=== PATIENT | female | born 1945 | race Caucasian/White ===

== ENCOUNTER → 2023-06-17 10:24 | Outpatient (REF) | payer OTHER, SELFPAY | LOC: HWRAD 10:24 | PROVIDERS: ATTENDING PHYSICIAN Nurse Practitioner Family; FAMILY PHYSICIAN Family Medicine | DX: R91.8 Other nonspecific abnormal finding of lung field (principal) | CPT/HCPCS: 71250 ==

== ENCOUNTER → 2023-07-30 08:07 | Outpatient (REF) | payer OTHER, SELFPAY | LOC: DHCBC/DCA 08:07 | PROVIDERS: ATTENDING PHYSICIAN Internal Medicine Cardiovascular Disease; FAMILY PHYSICIAN Family Medicine | DX: R06.09 Other forms of dyspnea (principal) | CPT/HCPCS: 78452; 93017; A9500; J2785 ==

== ENCOUNTER → 2024-02-09 14:54 | Outpatient (REF) | payer OTHER, SELFPAY | LOC: HWRAD 14:54 | PROVIDERS: ATTENDING PHYSICIAN Nurse Practitioner Family; FAMILY PHYSICIAN Family Medicine | DX: R91.8 Other nonspecific abnormal finding of lung field (principal) | CPT/HCPCS: 71250 ==

== ENCOUNTER → 2025-02-07 13:43 | Outpatient (REF) | payer OTHER, SELFPAY | LOC: HWRAD 13:43 | PROVIDERS: ATTENDING PHYSICIAN Nurse Practitioner Family; FAMILY PHYSICIAN Hospitalist | DX: J43.9 Emphysema, unspecified (principal); R91.8 Other nonspecific abnormal finding of lung field | CPT/HCPCS: 71250 ==

== ENCOUNTER 2025-04-15 18:04 | Inpatient (IN) | payer OTHER, SELFPAY ==
[2025-04-15 15:00] VITALS: BP 127/65
[2025-04-15 15:30] LABS: Hematocrit 40.8 % (37.0-47.0); Hemoglobin 14.0 g/dL (12.0-16.0); Mean Corp Hgb Conc. 34.3 g/dL (33.0-37.0); Mean Corpuscular Volume 88.7 fL (81.0-99.0); Nucleated Red Blood Cells % 0 %; Platelet Count 162 10^3/uL (130-400); Red Cell Dist. Width 13.6 % (11.5-14.5)
--- NOTE | 2025-04-15 15:41 | ED.GENMED ---
History of Present Illness
General
Chief Complaint: Breathing Problem
Source: patient
Exam Limitations: none
Time Seen by Provider: 04/15/25 15:39
Nursing documentation reviewed up to this point in time: agreed with
History of Present Illness
History of Present Illness:
Note:
CHIEF COMPLAINT(S)
Cough and difficulty breathing.
HISTORY OF PRESENT ILLNESS
The patient is a 80-year-old female who presents with a cough and difficulty breathing. She has a history of asthma and Chronic Obstructive Pulmonary Disease (COPD). The symptoms began a few days before the visit. The patient has not been on home
oxygen therapy, although her oxygen saturation levels were noted to drop as low as 84% during the current episode. Oxygen administration in the emergency room improved her saturation to 93-95%. Initially, she had a recorded temperature of 100�F. The
patient denies any recent weight gain or swelling in her legs. Her lungs were assessed to be congested and tight, warranting a concern for pneumonia, possibly in combination with asthma exacerbation and COPD. The patient received a flu shot two days
prior to this visit.
EXTERNAL RECORDS REVIEWED
The patient mentions receiving a flu shot two days prior to the visit.
SOCIAL DETERMINANTS AFFECTING HEALTH
The patient is currently not in direct contact with any known individuals diagnosed with similar respiratory conditions this week.
PHYSICAL EXAM
General: Alert, no acute distress.
Skin: Warm, dry.
Head: Normocephalic, atraumatic.
Neck: Supple, trachea midline.
Eye, Ears, Nose, Mouth, and Throat: Oral mucosa moist.
Cardiovascular: Normal peripheral perfusion, no edema.
Respiratory: Respirations are non-labored, but lungs sound congested and tight.
Gastrointestinal: Abdomen nondistended.
Back: Normal range of motion, normal alignment.
Musculoskeletal: Normal range of motion, normal strength.
Neurological: Alert and oriented to person, place, time, and situation, no focal neurological deficit observed.
Psychiatric: Cooperative, appropriate mood & affect.
PROBLEM LIST
- Acute: Cough, difficulty breathing, potential pneumonia, COPD exacerbation, asthma exacerbation.
PLAN
- Administer oxygen to maintain saturation levels around 93-95%.
- Conduct a chest X-ray to evaluate for pneumonia or fluid in the lungs.
- Initiate breathing treatment due to lung tightness.
- Administer antibiotics and Tamiflu to combat potential infections.
- Conduct tests for flu and COVID-19.
- Admit for overnight observation and further management due to low oxygen levels.
DIFFERENTIAL DIAGNOSIS
The Differential Diagnosis includes, in no particular order and is not limited to:
- Pneumonia
- COPD exacerbation
- Asthma exacerbation
- COVID-19 infection
- Congestive heart failure
- Chronic bronchitis
- Bronchial obstruction
- Pulmonary embolism
- Interstitial lung disease
- Viral respiratory infection
Disposition:
SUMMARY OF ENCOUNTER
The patient, a 80-year-old female with a history of asthma and COPD, presented to the emergency department with a cough and difficulty breathing. Upon evaluation, she was found to have hypoxia with oxygen saturation levels dropping as low as 84%.
She had an initial recorded temperature of 100�F. Oxygen administration improved her saturation to 93-95%. A working diagnosis of influenza A and COPD exacerbation was made. She received duoneb (a combination of albuterol and ipratropium),
oseltamivir (Tamiflu), and oxygen therapy, which resulted in an improvement of her hypoxia. Given the concern for ongoing respiratory compromise and potential complications, the decision was made to admit her for further management. Antibiotics were
determined not to be indicated at this time.
DISPOSITION
Admit to hospitalist for further treatment.
ASSESSMENT
COPD exacerbation likely triggered by influenza A infection, with associated hypoxia improving with treatment.
EMERGENCY TREATMENTS ADMINISTERED
Duoneb (albuterol and ipratropium)
Oseltamivir (Tamiflu)
Oxygen therapy via nasal cannula (2 liters)
PLAN
Admit the patient for further management due to COPD exacerbation and hypoxia.
MEDICATION RECONCILIATION
- Duoneb (albuterol and ipratropium) administered.
- Oseltamivir prescribed.
- Oxygen therapy via nasal cannula at 2 liters administered.
MEDICAL DECISION MAKING
- Number and Complexity of Problems Addressed: Chronic conditions affecting care [Asthma, COPD].
- Differential Diagnosis: Pneumonia, COPD exacerbation, Asthma exacerbation, COVID-19 infection, Congestive heart failure, Chronic bronchitis, Bronchial obstruction, Pulmonary embolism, Interstitial lung disease, Viral respiratory infection.
- Data:
- Category 1: Tests and documents reviewed included oxygen saturation levels and external records indicating the recent administration of a flu shot.
- Risk: The decision for hospital admission was made due to the presenting risk factors, including COPD exacerbation, underlying respiratory conditions, and response to initial treatment needing close monitoring.
DIAGNOSIS
- Influenza A (ICD-10 code: J09.X2)
- COPD exacerbation (ICD-10 code: J44.1)
- Hypoxia (ICD-10 code: R09.02)
Phy Exam
Physical Exam
Physical Exam:
.
Scores
Heart Failure Risk
Heart Failure Risk Score: Not Applicable
Sepsis
Sepsis Screening
Sepsis Assessment: Sepsis
Sepsis Screen
Sepsis Screen: Sepsis
Date: 04/15/25
Time: 23:32
Course
Orders/Labs/Results
Orders:
Orders
04/15/25 Dinner
Regular
04/15/25 15:06
CR Chest - 2 Views Urgent
Comment:
Reason For Exam: respiratory distress
04/15/25 15:13
COVID-19 Antigen Urgent
Source: Nasal Swab
Complete Blood Count/With Diff Urgent
Comprehensive Metabolic Panel Urgent
NT-proBNP Urgent
Troponin I Urgent
INF RAPID [Influenza A+B Rapid Molecular] Urgent
NATACHA Source: Nasal Swab
Specimen Description:
04/15/25 15:42
Electrocardiogram (*1) Stat
Reason for Study: Shortness of Breath
Electrocardiogram (*1) Urgent
04/15/25 15:55
Ipratropium/Albuterol Sulfate [Duoneb] 3 ml INH R NOW STA
Oseltamivir Phosphate [Tamiflu] 75 mg PO NOW STA
04/15/25 15:56
0.9% Sodium Chloride 1000 ml [Nss] 1,000 ml IV BOLUS
04/15/25 17:57
Admit/Transfer Patient As Directed
Co-Sign Provider:
Level of Care: Inpatient admission
Assign to:: Medical/Surgical
Physician / Group: ni
Diagnosis: influenza/copd exacerbation
Reason for Hospitalization: influenza/copd exacerbation
Expected length of stay greater than two midnights?: Yes
ELOS- Estimated Length of Stay in days: 2
I certify the patient meets the requirements for IP care: Yes
Code Status As Directed
Resuscitation Status: Full Code
PRN Pain Medication Management As Directed
May give lesser potent ordered pain med per pt: Yes
preference::
Protocol:: Medication orders for pain may be administered in a
manner that supports deferring to patient preference
when the pt is:
- Requesting an ordered lesser potent pain medication.
Least to most potent pain medications are defined
as: acetaminophen < NSAID < tramadol < opioids
(morphine, oxycodone, hydromorphone).
- Requesting a lesser dose of the same medication IF
ORDERED.
- Requesting a less intrusive route of administration
if both routes are prescribed by the provider (PO <
IV).
04/15/25 19:00
Acetaminophen [Tylenol] 650 mg PO Q4HPRN PRN
Dexamethasone Sod Phosphate [Decadron] 4 mg IV Q12H
04/15/25 19:33
Albuterol Nebs [Ventolin Nebules] 2.5 mg INH R Q4HPRN PRN
Simethicone [Mylicon] 80 mg PO DAILYPRN PRN gas pains
04/15/25 19:33
Activity As Directed
Activity Level: As Tolerated
Vital Signs As Directed
Frequency: Per unit guidelines
DX Deep Vein Thrombosis Video Routine
04/15/25 20:00
Albuterol Nebs [Ventolin Nebules] 2.5 mg INH R QID
Budesonide/Formoterol 160/4.5 [Symbicort 160/4.5 Mcg Inhaler] 2 puff INH R BID
Heparin 5,000 units SC Q12
Rosuvastatin Calcium [Crestor] 5 mg PO MOWEFR
Sennosides [Senokot] 8.6 mg PO DAILYPRN PRN constipation
04/16/25 06:00
Complete Blood Count/With Diff IN AM
Comprehensive Metabolic Panel IN AM
04/16/25 08:00
Amlodipine [Norvasc] 5 mg PO DAILY
Buspirone [Buspar] 5 mg PO DAILY
Cholecalciferol (Vitamin D3) [VITAMIN D3 (cholecalciferol)] 25 mcg PO DAILY
Lactobac/Bifidobac [Visbiome] 1 cap PO DAILY
Lansoprazole [Prevacid] 15 mg PO DAILY
Losartan [Cozaar] 100 mg PO DAILY
Multivitamin [Theragran] 1 tablet PO DAILY
Abnormal Lab Results
04/15/25
15:13
WBC 4.0 L 10^3/uL
(4.8-10.8)
Absolute Lymphs (auto) 0.4 L 10^3/uL
(1.2-3.4)
Neutrophils % 77.4 H %
(42.2-75.2)
Lymphocytes % 10.3 L %
(20.5-51.1)
Monocytes % 11.5 H %
(1.7-9.3)
Sodium 129 L mmol/L
(135-145)
Chloride 95 L mmol/L
(98-107)
Glucose 119 H mg/dl
(70-99)
AST 44 H U/L
(14-36)
ALT 38 H U/L
(0-35)
04/15/25 15:13
04/15/25 15:13
Vital Signs
Initial and Last Documented VS:
Initial Vital Signs
Temp Pulse Resp BP Pulse Ox
99.0 F 96 30 127/65 88
04/15/25 15:00 04/15/25 15:00 04/15/25 15:00 04/15/25 15:00 04/15/25 15:00
Last Documented Vital Signs
Temp Pulse Resp BP Pulse Ox
100.7 F H 79 16 161/74 97
04/15/25 19:47 04/15/25 20:38 04/15/25 20:38 04/15/25 19:47 04/15/25 20:38
*Pulse Oximetry
SaO2: 88
Oxygen Mode of Delivery: Room air
Patient hypoxic: yes
*Critical Care Note
Total Time (30-74mins, 75-104mins- exclusive of procedures): Not Applicable
ED Attending Note
-
Portions of this chart may have been created with voice recognition software.� Occasional wrong word or��sound alike� substitutions may have occurred due to the inherent limitations of voice recognition software.
Discharge Plan
Departure
Patient Disposition: Admit
Date of Disposition: 04/15/25
Time of Disposition: 17:07
Admit to: Telemetry
Presentation/result/management discussed w/ accepting MD/DO: Hospitalist
Patient with high blood pressure during this ER visit?: Yes
Condition: Fair
Discharge Problem:
Influenza A, Acute exacerbation of chronic obstructive pulmonary disease, Hypoxia
Interventions
Interventions:
*Risk Screen - Suicide Last Done: 04/15/25 20:40
*General Assessment Last Done: 04/15/25 16:40
*Neglect/Abuse Screening Last Done: 04/15/25 16:40
*ED- Fall Risk Assessment Last Done: 04/15/25 16:40
*ED COVID-19 Vaccine History Last Done: 04/15/25 20:40
*Nursing Disposition Last Done: 04/15/25 19:31
ED- Cardiac Assessment Last Done: 04/15/25 16:40
ED- Pulmonary Assessment Last Done: 04/15/25 16:40
Discharge Date and Time
Discharge Date/Time: 04/15/25 19:32
[2025-04-15 15:42] LABS: ALT (SGPT) 38 U/L (0-35); AST (SGOT) 44 U/L (14-36); Albumin 4.3 g/dl (3.5-5.0); Alkaline Phosphatase 67 U/L (38-126); Blood Urea Nitrogen 15 mg/dl (7-17); Calcium 9.0 mg/dl (8.4-10.2); Carbon Dioxide 30 mmol/L (22-30); Chloride 95 mmol/L (98-107); Glucose 119 mg/dl (70-99); Potassium 4.0 mmol/L (3.5-5.1); Sodium 129 mmol/L (135-145); Total Protein 6.8 g/dl (6.3-8.2); eGFR > 60.00
[2025-04-15 15:44] LABS: COVID-19 Antigen Negative (Negative)
[2025-04-15 15:53] LABS: Troponin I 0.022 ng/ml
[2025-04-15] MEDS: DUONEB 3 ML INH (16:14)
[2025-04-15] MEDS: TAMIFLU 75 MG PO (16:14)
[2025-04-15] MEDS: NSS 1000 IV (16:15)
--- NOTE | 2025-04-15 18:03 | HPS.HSE ---
Family Physician
-
Family Physician: Fani Monroe MD
Chief Complaint
-
shortness of breath
History of Present Illness
80-year-old female past medical history of descending thoracic aortic aneurysm, hypertension, osteopenia, pulmonary nodules, hyperlipidemia, COPD, nephrolithiasis,presenting with dry cough, low-grade fever, shortness of breath since yesterday.
Off-and-on headaches. No sore throat. No vomiting or diarrhea. Denies chest pain.
She saw her primary care physician today who recommended she come to the emergency room.
Patient denies alcohol. She smokes occasionally.
Medical History
Past Medical History
Past Medical History: Reports Other (descending thoracic aortic aneurysm, hypertension, osteopenia, pulmonary nodules, hyperlipidemia, COPD, nephrolithiasis)
Past Surgical History: Reports None
Social History
Tobacco: Smoker
Alcohol: None
Drug: None
Family History
Family History: Not pertinent
Allergies / Home Medications
Allergies reflects when Allergies were last updated in [facility].
Home Medications with original date entered in [facility]
Allergy/Medication List:
Allergies
Allergy/AdvReac Type Severity Reaction Status Date / Time
guaifenesin Allergy Unknown Verified 04/15/25 15:00
lorazepam (From Ativan) Allergy Unknown Verified 04/15/25 15:00
prednisone Allergy Unknown Verified 04/15/25 15:00
antihistamines Allergy Unknown Uncoded 04/15/25 15:00
nicotine patch Allergy Unknown Uncoded 04/15/25 15:00
Home Medications
Bifidobacterium longum 10 million cell capsule (Align (B.longum)) 1 cell PO DAILY Gastrointestinal Issue 04/15/25
acetaminophen 325 mg tablet (Tylenol) 650 mg PO Q6HPRN PRN mild pain 04/15/25
albuterol sulfate 90 mcg/actuation aerosol inhaler 2 puff inhalation R Q6HPRN PRN sob 04/15/25
amlodipine 5 mg tablet (Norvasc) 5 mg PO DAILY Blood Pressure 04/15/25
budesonide 160 mcg-glycopyr 9 mcg-formot 4.8 mcg/actuation HFA inhaler (Breztri Aerosphere) 2 inh inhalation R BID Lung/Breathing Issues 04/15/25
buspirone 5 mg tablet 5 mg PO DAILY Mental Health/Anxiety 04/15/25
cholecalciferol (vitamin D3) 25 mcg (1,000 unit) capsule (Vitamin D3) 25 mcg PO DAILY Supplement 04/15/25
lansoprazole 15 mg capsule,delayed release 15 mg PO DAILY Gastrointestinal Issue 04/15/25
losartan 100 mg tablet 100 mg PO DAILY Blood Pressure 04/15/25
rosuvastatin 5 mg tablet (Crestor) 5 mg PO MOWEFR High Cholesterol 04/15/25
sennosides 8.6 mg tablet (senna) 8.6 mg PO DAILYPRN PRN constipation 04/15/25
simethicone 80 mg chewable tablet 80 mg PO DAILYPRN PRN gas pains 04/15/25
therapeutic multivitamin 1 tab PO DAILY Supplement 04/15/25
Review of Systems
-
History Source: Patient
A 12 point ROS was completed and negative except as noted: Yes
Constitutional: Reports No Symptoms
EENT: Reports No Symptoms
Respiratory: Reports See HPI
Cardiac: Reports No Symptoms
Abdomen/GI: Reports No Symptoms
: Reports No Symptoms
Musculoskeletal: Reports No Symptoms
Skin: Reports No Symptoms
Neurological: Reports No Symptoms
Endocrine: Reports No Symptoms
Hematologic/Lymphatic: Reports No Symptoms
Psych: Reports No Symptoms
Physical Exam
Vital Signs
Vital Signs
Temp Pulse Resp BP Pulse Ox
99.0 F 96 30 127/65 88
04/15/25 15:00 04/15/25 15:00 04/15/25 15:00 04/15/25 15:00 04/15/25 15:42
Physical Exam
General: Well Developed, Well Nourished and No Apparent Distress
HEENT: NormoCephalic, Moist mucous membranes and Atraumatic
Respiratory: Wheezes
Cardiac: S1/S2 and Regular Rhythm; No Murmur or Rub
GI: Soft, Non Tender, Non Distended and Normal Bowel Sounds; No Organomegaly
Rectal: Deferred by Provider
Musculoskeletal: No Clubbing, No Cyanosis and No Edema
Skin: No Rash
Neuro: Nonfocal/grossly intact
Laboratory Results
-
04/15/25 15:13
04/15/25 15:13
Laboratory Results
Total Bilirubin 0.2 mg/dl (0.2-1.3) 04/15/25 15:13
AST 44 U/L (14-36) H 04/15/25 15:13
ALT 38 U/L (0-35) H 04/15/25 15:13
Alkaline Phosphatase 67 U/L (38-126) 04/15/25 15:13
Troponin I 0.022 ng/ml 04/15/25 15:13
Data Reviewed
-
Lab Data: Labs Reviewed by me
Old Records: Reviewed
Impression/Plan
-
IMPRESSION:
PLAN:
# Influenza A infection
-Leukopenia 4
-Chest x-ray does not appear to show any infiltrates, report pending
- Tamiflu started
# COPD exacerbation secondary to influenza
-Wheezing on examination bilateral
- Albuterol every 4 hours
- Dexamethasone 4 mg every 12
- Continue Breztri
Occasional smoker
Descending thoracic aortic aneurysm
Essential hypertension
- Continue amlodipine, losartan
Osteopenia
Pulmonary nodules
Hyperlipidemia
- Continue statin
Nephrolithiasis
Prediabetes
Anxiety/depression
-Continue buspirone
GERD
-Continue lansoprazole
Full code
DVT prophylaxis�heparin
Regular diet
[2025-04-15 19:47] VITALS: BP 161/74
[2025-04-15 19:48] VITALS: BMI 19.2
--- NOTE | 2025-04-15 20:00 | PTCARENOTE ---
Late entry, Received patient from ED with her daughter. Patient AAOx3, walked to bedside with min assist. Assessed. VSS. Patient oriented to the unit. Patient verbalized an understanding to ring for all transfers. Bed alarm placed for safety.
[2025-04-15] MEDS: DECADRON 4 MG IV (20:18)
[2025-04-15] MEDS: HEPARIN 5000 UNITS SC (20:21)
[2025-04-15] MEDS: TYLENOL 650 MG PO (20:23)
[2025-04-15] MEDS: TAMIFLU 30 MG PO (20:24)
[2025-04-15] MEDS: CRESTOR PO (20:25)
[2025-04-15] MEDS: VENTOLIN NEBULES 2.5 MG INH ×2 (20:37→23:37)
[2025-04-15] MEDS: SYMBICORT 160/4.5 MCG INHALER 2 PUFF INH (20:38)
[2025-04-15 23:35] VITALS: BP 116/57
[2025-04-16] MEDS: ANESTHETIC LOZENGE 1 LOZENGE PO ×3 (03:39→19:49)
[2025-04-16] MEDS: VENTOLIN NEBULES 2.5 MG INH (06:07)
[2025-04-16 06:54] LABS: Hematocrit 38.3 % (37.0-47.0); Hemoglobin 13.1 g/dL (12.0-16.0); Mean Corp Hgb Conc. 34.2 g/dL (33.0-37.0); Mean Corpuscular Volume 91.0 fL (81.0-99.0); Nucleated Red Blood Cells % 0 %; Platelet Count 148 10^3/uL (130-400); Red Cell Dist. Width 13.4 % (11.5-14.5)
[2025-04-16 07:15] LABS: ALT (SGPT) 39 U/L (0-35); AST (SGOT) 58 U/L (14-36); Albumin 3.7 g/dl (3.5-5.0); Alkaline Phosphatase 59 U/L (38-126); Blood Urea Nitrogen 14 mg/dl (7-17); Calcium 8.3 mg/dl (8.4-10.2); Carbon Dioxide 29 mmol/L (22-30); Chloride 97 mmol/L (98-107); Estimated Creatinine Clearance 47 ml/min; Glucose 136 mg/dl (70-99); Potassium 3.9 mmol/L (3.5-5.1); Sodium 131 mmol/L (135-145); Total Protein 6.4 g/dl (6.3-8.2); eGFR > 60.00
[2025-04-16] MEDS: VENTOLIN NEBULES INH (07:43)
[2025-04-16] MEDS: SYMBICORT 160/4.5 MCG INHALER 2 PUFF INH ×2 (07:44→17:43)
[2025-04-16] MEDS: SPIRIVA RESPIMAT 2.5 MCG 2 PUFF INH (07:45)
[2025-04-16 07:56] VITALS: BP 125/62
[2025-04-16] MEDS: TAMIFLU 30 MG PO ×2 (08:02→19:48)
[2025-04-16] MEDS: TYLENOL 650 MG PO ×2 (08:02→19:51)
[2025-04-16] MEDS: VISBIOME 1 CAP PO (08:02)
[2025-04-16] MEDS: COZAAR 100 MG PO (08:03)
[2025-04-16] MEDS: PREVACID 15 MG PO (08:03)
[2025-04-16] MEDS: THERAGRAN 1 TABLET PO (08:03)
[2025-04-16] MEDS: BUSPAR 5 MG PO (08:03)
[2025-04-16] MEDS: VITAMIN D3 (cholecalciferol) 25 MCG PO (08:03)
[2025-04-16] MEDS: HEPARIN 5000 UNITS SC (08:03)
[2025-04-16] MEDS: NORVASC 5 MG PO (08:03)
[2025-04-16 08:45] LABS: Procalcitonin 0.31 ng/ml (0.0-0.25)
--- NOTE | 2025-04-16 10:47 | W.PN.HOSP.TC ---
Today's Communication/Plan
-
see A/P
Assessment / Plan
Assessment / Plan
HPI: 80-year-old female past medical history of descending thoracic aortic aneurysm, hypertension, osteopenia, pulmonary nodules, hyperlipidemia, COPD, nephrolithiasis, p/w dry cough, low-grade fever, shortness of breath since the day [employer].
Off-and-on headaches. No sore throat. No vomiting or diarrhea. Denies chest pain.
She saw her primary care physician today who recommended she come to the emergency room.
Patient denies alcohol. She smokes occasionally.
CXR showed increased interstitial markings within both lungs, likely interstitial pneumonia in this patient with positive influenza A test.
A/P:
# Pneumonia 2/2 Influenza A and CAP with bacterial pneumonia
# Acute hypoxic respiratory insufficiency
Placed on 4L NC, cont O2 and wean as tolerated, pt not on home O2
Cont Tamiflu for 5 days
Procal elevated at 0.31, Check MRSA screen
Start empiric Ceftriaxone/azithromycin
Pt states she did not tolerate Mucinex in the past, will order chest PT
Tessalon x1 dose then PRN for cough
# COPD exacerbation secondary to influenza
Use DuoNeb ATC and PRN
wheezing has resolved and pt requesting to hold off steroid with her previous severe S/E of confusion
Stop further Dexamethasone
# Occasional smoker
# Descending thoracic aortic aneurysm
# Essential hypertension
Continue amlodipine, losartan with hold parameters
# Osteopenia
# Pulmonary nodules
# Hyperlipidemia
Continue statin
# Nephrolithiasis
# Prediabetes
# Anxiety/depression
Continue buspirone
# GERD
Continue lansoprazole
Full code
DVT prophylaxis� lovenox SQ
Regular diet
DW RN
called daughter twice to update, calls not answered
total time 51 min
Anticipated Discharge: 24 - 48 hours
Subjective/Interval History
-
Date of Service: April 16, 2025
Objective Data
-
Labs:
Laboratory Results
04/16/25
05:43
WBC 5.6
Hgb 13.1
Hct 38.3
Plt Count 148
Sodium 131 L
Potassium 3.9
Chloride 97 L
Carbon Dioxide 29
BUN 14
Creatinine 0.7
Glucose 136 H
Calcium 8.3 L
Total Bilirubin 0.2
AST 58 H
ALT 39 H
Alkaline Phosphatase 59
Vital Signs:
Vital Signs
Temp Pulse Resp BP Pulse Ox
37.0 C 93 14 125/62 95
04/16/25 07:56 04/16/25 07:56 04/16/25 07:56 04/16/25 07:56 04/16/25 07:56
I&O
04/15/25 04/16/25 04/17/25
06:59 06:59 06:59
Intake Total 480 / 480
Balance 480 / 480
[2025-04-16] MEDS: DUONEB 3 ML INH ×4 (11:15→22:12)
[2025-04-16] MEDS: DECADRON IV (11:21)
[2025-04-16] MEDS: TESSALON PERLES 100 MG PO ×2 (11:21→19:49)
[2025-04-16] MEDS: ZITHROMAX INFUSION 250 IV (11:21)
[2025-04-16] MEDS: STERILE WATER FOR INJECTION 10 ML IV (11:22)
[2025-04-16] MEDS: ROCEPHIN 1000 MG IV (11:22)
[2025-04-16] MEDS: MYCOSTATIN ORAL SUSPENSION 5 ML PO ×3 (14:29→21:41)
[2025-04-16 15:43] VITALS: BP 130/64
--- NOTE | 2025-04-16 15:56 | CM ---
Met with patient at bedside
Pharmacy verified: [facility] @ [address] [place]
Lives in a multilevel home; her son and daughter in law live with her; 1 step to enter; 12-13 steps down to her living space; bath has stall shower w/ grab bar and seat
Reported she is independent with ambulation, stairs, and ADLs; drives; works remote occasionally
DME: [employer] only
Family member will provide transport home
If home health is recommended, she is agreeable; options identified; [facility] is preference
Plan: Discharge to home when medically stable; case management will monitor for disposition needs when identified
[2025-04-16] MEDS: LOVENOX 40 MG SC (18:01)
--- NOTE | 2025-04-16 22:32 | PTCARENOTE ---
Patient coughed up a small amount of greenish tinged mucous following a breathing tx.
[2025-04-16 23:42] VITALS: BP 101/83
[2025-04-17] MEDS: TESSALON PERLES 100 MG PO ×4 (00:06→22:21)
[2025-04-17] MEDS: DUONEB 3 ML INH ×5 (04:18→17:38)
[2025-04-17 07:00] VITALS: BP 127/64
[2025-04-17] MEDS: SYMBICORT 160/4.5 MCG INHALER 2 PUFF INH ×2 (07:36→17:38)
[2025-04-17 07:40] LABS: Hematocrit 38.7 % (37.0-47.0); Hemoglobin 12.9 g/dL (12.0-16.0); Mean Corp Hgb Conc. 33.3 g/dL (33.0-37.0); Mean Corpuscular Volume 90.0 fL (81.0-99.0); Nucleated Red Blood Cells % 0 %; Platelet Count 149 10^3/uL (130-400); Red Cell Dist. Width 13.5 % (11.5-14.5)
[2025-04-17 07:44] LABS: Blood Urea Nitrogen 16 mg/dl (7-17); Calcium 8.8 mg/dl (8.4-10.2); Carbon Dioxide 32 mmol/L (22-30); Chloride 99 mmol/L (98-107); Estimated Creatinine Clearance 47 ml/min; Glucose 85 mg/dl (70-99); Potassium 3.9 mmol/L (3.5-5.1); Sodium 132 mmol/L (135-145); eGFR > 60.00
[2025-04-17] MEDS: MYCOSTATIN ORAL SUSPENSION 5 ML PO ×4 (08:44→22:21)
[2025-04-17] MEDS: COZAAR 100 MG PO (08:45)
[2025-04-17] MEDS: NORVASC 5 MG PO (08:45)
[2025-04-17] MEDS: THERAGRAN 1 TABLET PO (08:45)
[2025-04-17] MEDS: VITAMIN D3 (cholecalciferol) 25 MCG PO (08:45)
[2025-04-17] MEDS: TAMIFLU 30 MG PO ×2 (08:45→20:42)
[2025-04-17] MEDS: BUSPAR 5 MG PO (08:45)
[2025-04-17] MEDS: PREVACID 15 MG PO (08:45)
[2025-04-17] MEDS: VISBIOME 1 CAP PO (08:45)
--- NOTE | 2025-04-17 10:57 | W.PN.HOSP.TC ---
Today's Communication/Plan
-
see A/P
Assessment / Plan
Assessment / Plan
HPI: 80-year-old female past medical history of descending thoracic aortic aneurysm, hypertension, osteopenia, pulmonary nodules, hyperlipidemia, COPD, nephrolithiasis, p/w dry cough, low-grade fever, shortness of breath since the day [employer].
Off-and-on headaches. No sore throat. No vomiting or diarrhea. Denies chest pain.
She saw her primary care physician today who recommended she come to the emergency room.
Patient denies alcohol. She smokes occasionally.
CXR showed increased interstitial markings within both lungs, likely interstitial pneumonia in this patient with positive influenza A test.
A/P:
# Pneumonia 2/2 Influenza A and CAP with bacterial pneumonia
# Acute hypoxic respiratory insufficiency
Placed on 4L NC, cont O2 and wean as tolerated, pt not on home O2
Cont Tamiflu for 5 days
Procal elevated at 0.31,
Follow MRSA screen
Started empiric Ceftriaxone/azithromycin, cont
Pt states she did not tolerate Mucinex in the past, chest PT ordered
Tessalon PRN for cough
# COPD exacerbation secondary to influenza
Use DuoNeb ATC and PRN
wheezing has resolved and pt requesting to hold off steroid with her previous severe S/E of confusion
Stop further Dexamethasone
# Occasional smoker
# Descending thoracic aortic aneurysm
# Essential hypertension
Continue amlodipine, losartan with hold parameters
# Osteopenia
# Pulmonary nodules
# Hyperlipidemia
Continue statin
# Nephrolithiasis
# Prediabetes
# Anxiety/depression
Continue buspirone
# GERD
Continue lansoprazole
Full code
DVT prophylaxis� lovenox SQ
Regular diet
DW RN
DW daughter at bedside
Anticipated Discharge: 24 - 48 hours
Subjective/Interval History
-
Date of Service: April 17, 2025
Objective Data
-
Labs:
Laboratory Results
04/17/25
06:34
WBC 5.3
Hgb 12.9
Hct 38.7
Plt Count 149
Sodium 132 L
Potassium 3.9
Chloride 99
Carbon Dioxide 32 H
BUN 16
Creatinine 0.7
Glucose 85
Calcium 8.8
Vital Signs:
Vital Signs
Temp Pulse Resp BP Pulse Ox
37.0 C 89 18 127/64 97
04/17/25 07:00 04/17/25 07:39 04/17/25 07:39 04/17/25 07:00 04/17/25 07:39
I&O
04/16/25 04/17/25 04/18/25
06:59 06:59 06:59
Intake Total 480 / 480 480 / 480
Balance 480 / 480 480 / 480
Review of Systems
-
History Source: Patient
Respiratory: Reports Cough (improved )
Physical Exam
-
General: Well Developed, Well Nourished, Comfortable, Respiratory Distress and Conversant
HEENT: Normocephalic, Atraumatic, Nose Appears Normal, Ears Appear Normal and Oxygen (2.5 L NC)
Respiratory: Clear to Auscultation and Non Labored Respirations; Negative Wheezes or Accessory Resp Muscle Use
Cardiac: Regular Rhythm and S1/S2
GI: Soft, Nontender, Nondistended and Normal Bowel Sounds
Skin: Warm and Dry
Neuro: Awake, Alert, Oriented and AO x 3
Psych: Calm and Intact Judgement/Insight
Data Reviewed
-
Diagnostic Radiology: Report Reviewed by me
Labs: Labs Reviewed by me
[2025-04-17] MEDS: ROCEPHIN 1000 MG IV (11:22)
[2025-04-17] MEDS: STERILE WATER FOR INJECTION 10 ML IV (11:22)
[2025-04-17] MEDS: ANESTHETIC LOZENGE 1 LOZENGE PO (11:23)
[2025-04-17] MEDS: ZITHROMAX INFUSION 250 IV (11:23)
[2025-04-17] MEDS: TYLENOL 650 MG PO ×2 (11:26→20:43)
[2025-04-17 15:00] VITALS: BP 109/54
[2025-04-17 15:29] VITALS: BP 101/63; PULSE 91; O2SAT 92
[2025-04-17] MEDS: LOVENOX 40 MG SC (17:53)
[2025-04-17 23:24] VITALS: BP 118/66
[2025-04-18] MEDS: DUONEB 3 ML INH ×5 (04:30→19:23)
[2025-04-18] MEDS: ANESTHETIC LOZENGE 1 LOZENGE PO ×2 (05:00→17:24)
[2025-04-18] MEDS: SYMBICORT 160/4.5 MCG INHALER 2 PUFF INH ×2 (07:31→19:23)
[2025-04-18 07:36] VITALS: BP 121/60
[2025-04-18] MEDS: MYCOSTATIN ORAL SUSPENSION 5 ML PO ×4 (08:41→22:01)
[2025-04-18] MEDS: TAMIFLU 30 MG PO ×2 (08:48→20:56)
[2025-04-18] MEDS: TESSALON PERLES 100 MG PO ×2 (08:48→17:27)
[2025-04-18] MEDS: TYLENOL 650 MG PO ×2 (08:48→17:24)
[2025-04-18] MEDS: VISBIOME 1 CAP PO (08:49)
[2025-04-18] MEDS: BUSPAR 5 MG PO (08:49)
[2025-04-18] MEDS: THERAGRAN 1 TABLET PO (08:49)
[2025-04-18] MEDS: NORVASC 5 MG PO (08:49)
[2025-04-18] MEDS: PREVACID 15 MG PO (08:49)
[2025-04-18] MEDS: COZAAR 100 MG PO (08:49)
[2025-04-18] MEDS: VITAMIN D3 (cholecalciferol) 25 MCG PO (08:49)
[2025-04-18 08:57] LABS: Hematocrit 41.0 % (37.0-47.0); Hemoglobin 13.4 g/dL (12.0-16.0); Mean Corp Hgb Conc. 32.7 g/dL (33.0-37.0); Mean Corpuscular Volume 92.8 fL (81.0-99.0); Nucleated Red Blood Cells % 0 %; Platelet Count 143 10^3/uL (130-400); Red Cell Dist. Width 13.5 % (11.5-14.5)
[2025-04-18 09:46] LABS: Blood Urea Nitrogen 10 mg/dl (7-17); Calcium 9.0 mg/dl (8.4-10.2); Carbon Dioxide 35 mmol/L (22-30); Chloride 100 mmol/L (98-107); Estimated Creatinine Clearance 55 ml/min; Glucose 106 mg/dl (70-99); Potassium 3.9 mmol/L (3.5-5.1); Sodium 135 mmol/L (135-145); eGFR > 60.00
--- NOTE | 2025-04-18 10:35 | VNURNOTE ---
Home Health Liaison spoke with patient and daughter to discuss [facility] nurse/therapy, visits, schedule and homebound status. Patient is agreeable and understands that visits at home will be 2-3 x per week to assess and teach medical management.
Patient is aware that [facility] will contact them for start of care within a week after discharge from . Provided contact number for [facility].
Will watch if new home 02 needs.
[facility] referral completed in [facility].
[2025-04-18] MEDS: STERILE WATER FOR INJECTION 10 ML IV (12:42)
[2025-04-18] MEDS: ROCEPHIN 1000 MG IV (12:42)
[2025-04-18] MEDS: ZITHROMAX INFUSION 250 IV (12:42)
[2025-04-18] MEDS: PHENERGAN WITH CODEINE SYRUP 5 ML PO ×2 (13:59→22:01)
--- NOTE | 2025-04-18 14:58 | PN.CDI ---
CDI
- -
CDI:
Physician Documentation Request
Admit Date: 04/15/25 18:04
Dear Doctor Alexey,
Please review the following and provide your response in the progress notes.
Clinical Indicators:
- 04/15 ER Physician 'presents with a cough and difficulty breathing'
- 'oxygen saturation levels were noted to drop as low as 84%'
- 04/18 PN 'Acute hypoxic respiratory insufficiency'
- 4L O2, pulse ox > 88%
Please clarify which of the following accurately represents the patient's respiratory status:
Acute hypoxic respiratory failure
Hypoxia
Other (please specify)
Additional information for Respiratory Failure:
Recognized criteria for Respiratory Failure (Source: Manda SNehal Stoll. 2019 April 07.
Documentation tips: Acute Respiratory Failure, The Hospitalist.)
ABGs: (1 or more) Symptoms Please indicate type if known
1. p)2 <60 or RA SPO2 <91% on RA 1. Tachypnea, SOB, dyspnea Hypoxic
2. pCO2 >45 and pH <7.35 2. Use of accessory muscles Hypercapnic
3. pO2 decrease of pCO2 increase by 3. Pallor or cyanosis Hypoxic and Hypercapnic
10 mmHg from baseline if known 4. Anxiety or restlessness Unable to determine
4. P/F Ratio (pO2/FiO2)nless than 300 5. Unable to speak in full sentences
Use of terms such as suspected, likely, concern for, or probable (associated with a specific diagnosis that is being evaluated, monitored, or treated as if it exists) are acceptable and can be coded in the inpatient setting, when documented at the
time of discharge.
Thank you,
Amanda Tee RN
CDI Specialist
Please use your independent medical judgment in providing your response.
--- NOTE | 2025-04-18 15:11 | W.PN.HOSP.TC ---
Today's Communication/Plan
-
Assessment / Plan
Assessment / Plan
General: No Apparent Distress, Comfortable and Conversant
HEENT: NormoCephalic, Moist mucous membranes, Atraumatic
Respiratory: Mild scattered rhonchi bilaterally, Non Labored Respirations
Cardiac: S1/S2 and Regular Rhythm; No Rub or Gallop
GI: Soft, Non Tender, Non Distended and Normal Bowel Sounds
Musculoskeletal: No Edema, no deformity
: NO Anderson
Neuro: Awake, Alert, Nonfocal/grossly intact
Psych: Calm and cooperative
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
Off-and-on headaches. No sore throat. No vomiting or diarrhea. Denies chest pain.
She saw her primary care physician today who recommended she come to the emergency room.
Patient denies alcohol. She smokes occasionally.
CXR showed increased interstitial markings within both lungs, likely interstitial pneumonia in this patient with positive influenza A test.
A/P:
# Pneumonia 2/2 Influenza A and CAP with bacterial pneumonia
# Acute hypoxic respiratory insufficiency
Placed on 4L NC, cont O2 and wean as tolerated, pt not on home O2, currently requiring 3 L
Cont Tamiflu for 5 days, today is day 3
Procal elevated at 0.31,
Follow MRSA screen
Started empiric Ceftriaxone/azithromycin, today is day 3/5
Pt states she did not tolerate Mucinex in the past, chest PT ordered
Tessalon PRN for cough, Phenergan with codeine for cough not responsive to Tessalon
# COPD exacerbation secondary to influenza
Use DuoNeb ATC and PRN
wheezing has resolved and pt requesting to hold off steroid with her previous severe S/E of confusion
Stop further Dexamethasone
# Occasional smoker
# Descending thoracic aortic aneurysm
# Essential hypertension
Continue amlodipine, losartan with hold parameters
# Osteopenia
# Pulmonary nodules
# Hyperlipidemia
Continue statin
# Nephrolithiasis
# Prediabetes
# Anxiety/depression
Continue buspirone
# GERD
Continue lansoprazole
Full code
DVT prophylaxis� lovenox SQ
Regular diet
Anticipated Discharge: 24 - 48 hours
Subjective/Interval History
-
Date of Service: April 18, 2025
Patient was seen and examined at bedside. Continues to have cough productive of green sputum.
Objective Data
-
Labs:
Laboratory Results
04/18/25
08:34
WBC 4.0 L
Hgb 13.4
Hct 41.0
Plt Count 143
Sodium 135
Potassium 3.9
Chloride 100
Carbon Dioxide 35 H
BUN 10
Creatinine 0.6
Glucose 106 H
Calcium 9.0
Vital Signs:
Vital Signs
Temp Pulse Resp BP Pulse Ox
99.5 F 86 20 121/60 96
04/18/25 07:36 04/18/25 11:38 04/18/25 11:38 04/18/25 08:49 04/18/25 14:24
I&O
04/17/25 04/18/25 04/19/25
06:59 06:59 06:59
Intake Total 720 / 720
Balance 720 / 720
Review of Systems
-
History Source: Patient
All other systems: Reviewed and negative
Physical Exam
-
General: No Apparent Distress
[2025-04-18 15:49] VITALS: BP 115/55
[2025-04-18] MEDS: LOVENOX 40 MG SC (17:24)
[2025-04-18] MEDS: CRESTOR 5 MG PO (20:55)
[2025-04-19] MEDS: DUONEB 3 ML INH ×6 (01:47→19:09)
[2025-04-19] MEDS: TESSALON PERLES 100 MG PO ×3 (02:13→20:47)
[2025-04-19] MEDS: SYMBICORT 160/4.5 MCG INHALER 2 PUFF INH ×2 (07:26→19:09)
[2025-04-19 07:53] VITALS: BP 150/66
[2025-04-19] MEDS: PHENERGAN WITH CODEINE SYRUP 5 ML PO ×2 (08:39→17:31)
[2025-04-19] MEDS: MYCOSTATIN ORAL SUSPENSION 5 ML PO ×4 (08:39→23:17)
[2025-04-19] MEDS: VITAMIN D3 (cholecalciferol) 25 MCG PO (08:40)
[2025-04-19] MEDS: PREVACID 15 MG PO (08:40)
[2025-04-19] MEDS: VISBIOME 1 CAP PO (08:40)
[2025-04-19] MEDS: COZAAR 100 MG PO (08:40)
[2025-04-19] MEDS: THERAGRAN 1 TABLET PO (08:40)
[2025-04-19] MEDS: TAMIFLU 30 MG PO ×2 (08:40→20:32)
[2025-04-19] MEDS: NORVASC 5 MG PO (08:40)
[2025-04-19] MEDS: BUSPAR 5 MG PO (08:40)
[2025-04-19] MEDS: ZITHROMAX INFUSION 250 IV (11:22)
--- NOTE | 2025-04-19 11:42 | PN.CDI ---
CDI
- -
CDI:
Physician Documentation Request
Admit Date: 04/15/25 18:04
Dear Doctor Alexey,
Please review the following and provide your response in the progress notes.
Clinical Indicators:
- Patient admit for pneumonia 2/2 Influenza A and CAP
- 1L IVF given
- Documented oral intake 480ml per day 04/16-04/17
Laboratory Tests
04/15/25 04/16/25 04/17/25
15:13 05:43 06:34
Sodium 129 L 131 L 132 L
Please provide a diagnosis for the above lab values that were monitored and treatment rendered:
Hyponatremia
Clinically insignificant abnormal lab value
Other (please specify)
Use of terms such as suspected, likely, concern for, or probable (associated with a specific diagnosis that is being evaluated, monitored, or treated as if it exists) are acceptable and can be coded in the inpatient setting, when documented at the
time of discharge.
Thank you,
Amanda Tee RN
CDI Specialist
Please use your independent medical judgment in providing your response.
--- NOTE | 2025-04-19 12:32 | W.PN.HOSP.TC ---
Addendum entered and electronically signed by River Blackburn DO 04/19/25 15:15:
Diagnosis of acute hypoxic respiratory failure secondary to pneumonia this admission
Addendum entered and electronically signed by River Blackburn, 04/19/25 15:11:
Additional diagnosis:
- Hyponatremia, mild, resolved
Addendum entered and electronically signed by River Blackburn, 04/19/25 14:44:
Patient qualifies for supplemental home oxygen following respiratory evaluation today.
Original Note:
Today's Communication/Plan
-
Assessment / Plan
Assessment / Plan
General: No Apparent Distress, Comfortable and Conversant
HEENT: NormoCephalic, Moist mucous membranes, Atraumatic
Respiratory: Mild scattered rhonchi bilaterally, Non Labored Respirations
Cardiac: S1/S2 and Regular Rhythm; No Rub or Gallop
GI: Soft, Non Tender, Non Distended and Normal Bowel Sounds
Musculoskeletal: No Edema, no deformity
: NO Anderson
Neuro: Awake, Alert, Nonfocal/grossly intact
Psych: Calm and cooperative
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
Off-and-on headaches. No sore throat. No vomiting or diarrhea. Denies chest pain.
She saw her primary care physician today who recommended she come to the emergency room.
Patient denies alcohol. She smokes occasionally.
CXR showed increased interstitial markings within both lungs, likely interstitial pneumonia in this patient with positive influenza A test.
A/P:
# Pneumonia 2/2 Influenza A and CAP with bacterial pneumonia
# Acute hypoxic respiratory insufficiency
Placed on 4L NC, cont O2 and wean as tolerated, pt not on home O2, currently breathing comfortably on room air, will assess for home oxygen needs
Cont Tamiflu for 5 days, today is day 4
Procal elevated at 0.31,
Follow MRSA screen
Started empiric Ceftriaxone/azithromycin, today is day 4/5
Pt states she did not tolerate Mucinex in the past, chest PT ordered
Tessalon PRN for cough, Phenergan with codeine for cough not responsive to Tessalon
Anticipate to home with home health in the next 24 to 48 hours
# COPD exacerbation secondary to influenza
Use DuoNeb ATC and PRN
wheezing has resolved and pt requesting to hold off steroid with her previous severe S/E of confusion
Stop further Dexamethasone
# Occasional smoker
# Descending thoracic aortic aneurysm
# Essential hypertension
Continue amlodipine, losartan with hold parameters
# Osteopenia
# Pulmonary nodules
# Hyperlipidemia
Continue statin
# Nephrolithiasis
# Prediabetes
# Anxiety/depression
Continue buspirone
# GERD
Continue lansoprazole
Full code
DVT prophylaxis� lovenox SQ
Regular diet
Anticipated Discharge: 24 - 48 hours
Subjective/Interval History
-
Date of Service: April 19, 2025
Patient was seen and examined at bedside this morning. Still having productive cough.
Objective Data
-
Vital Signs:
Vital Signs
Temp Pulse Resp BP Pulse Ox
98.4 F 86 18 150/66 84
04/19/25 07:53 04/19/25 10:59 04/19/25 10:59 04/19/25 08:40 04/19/25 10:59
I&O
04/18/25 04/19/25 04/20/25
06:59 06:59 06:59
Intake Total 720 / 720 900 / 900
Balance 720 / 720 900 / 900
Review of Systems
-
History Source: Patient
All other systems: Reviewed and negative
Respiratory: Reports Cough
Physical Exam
-
General: No Apparent Distress
[2025-04-19 12:42] VITALS: BP 125/71; PULSE 93; O2SAT 95
[2025-04-19] MEDS: STERILE WATER FOR INJECTION 10 ML IV (12:52)
[2025-04-19] MEDS: ROCEPHIN 1000 MG IV (12:52)
--- NOTE | 2025-04-19 14:44 | CM ---
Addendum entered by Susana Darling 04/19/25 15:05:
Physician note faxed to [facility]
Original Note:
CM reviewed pt chart
VN recs- referral day prior to [facility] and pt accepted for service
Home O2 eval today- pt qualifies for home O2
Bedside meeting with pt
Referral initiated to [facility] for home O2- awaiting physician note
Clinicals and Rx faxed to [facility]
ADC 1-2 days, if pt does not dc on , will likely require new home O2 eval
Discharge Disposition- home with [facility] and new home O2 ([facility] referral pending)
[2025-04-19 15:30] VITALS: BP 131/74
[2025-04-19] MEDS: LOVENOX 40 MG SC (17:31)
[2025-04-19] MEDS: TYLENOL 650 MG PO (20:47)
[2025-04-19 23:22] VITALS: BP 136/73
[2025-04-20] MEDS: DUONEB 3 ML INH ×2 (01:13→07:03)
[2025-04-20] MEDS: SYMBICORT 160/4.5 MCG INHALER 2 PUFF INH (07:03)
[2025-04-20 07:35] VITALS: BP 141/67
[2025-04-20] MEDS: COZAAR 100 MG PO (07:43)
[2025-04-20] MEDS: VISBIOME 1 CAP PO (07:43)
[2025-04-20] MEDS: THERAGRAN 1 TABLET PO (07:44)
[2025-04-20] MEDS: ANESTHETIC LOZENGE 1 LOZENGE PO ×2 (07:44→13:09)
[2025-04-20] MEDS: NORVASC 5 MG PO (07:44)
[2025-04-20] MEDS: BUSPAR 5 MG PO (07:44)
[2025-04-20] MEDS: PREVACID 15 MG PO (07:44)
[2025-04-20] MEDS: MYCOSTATIN ORAL SUSPENSION 5 ML PO ×2 (07:45→13:08)
[2025-04-20] MEDS: TAMIFLU 30 MG PO (07:45)
[2025-04-20] MEDS: VITAMIN D3 (cholecalciferol) 25 MCG PO (07:45)
[2025-04-20] MEDS: TYLENOL 650 MG PO (07:49)
[2025-04-20 07:51] LABS: Hematocrit 39.3 % (37.0-47.0); Hemoglobin 13.1 g/dL (12.0-16.0); Mean Corp Hgb Conc. 33.3 g/dL (33.0-37.0); Mean Corpuscular Volume 91.2 fL (81.0-99.0); Platelet Count 153 10^3/uL (130-400); Red Cell Dist. Width 13.1 % (11.5-14.5)
[2025-04-20 08:07] LABS: ALT (SGPT) 45 U/L (0-35); AST (SGOT) 42 U/L (14-36); Albumin 3.6 g/dl (3.5-5.0); Alkaline Phosphatase 55 U/L (38-126); Blood Urea Nitrogen 11 mg/dl (7-17); Calcium 9.1 mg/dl (8.4-10.2); Chloride 98 mmol/L (98-107); Estimated Creatinine Clearance 55 ml/min; Glucose 82 mg/dl (70-99); Potassium 4.0 mmol/L (3.5-5.1); Sodium 137 mmol/L (135-145); Total Protein 6.3 g/dl (6.3-8.2); eGFR > 60.00
[2025-04-20 08:16] LABS: Carbon Dioxide 36 mmol/L (22-30)
[2025-04-20 08:38] LABS: Nucleated Red Blood Cells % 0 %
[2025-04-20] MEDS: TESSALON PERLES 100 MG PO ×2 (09:30→13:08)
--- NOTE | 2025-04-20 10:47 | VNURNOTE ---
Chart reviewed. Patient is accepted with [facility]. Qualified for new home 02. Confirmed with Kasey at [facility] all info rec'ed. They will deliver portable tank to bedside today.
[2025-04-20] MEDS: ZITHROMAX INFUSION 250 IV (11:42)
[2025-04-20] MEDS: ROCEPHIN 1000 MG IV (11:44)
[2025-04-20] MEDS: STERILE WATER FOR INJECTION 10 ML IV (11:44)
--- NOTE | 2025-04-20 13:18 | PTCARENOTE ---
RN called to room for increasing cough and SOB. PRN lozenge and tessalon pearls administered. o2 @ 94% on 2L. Reached out to MD for PRN [place].
[2025-04-20] MEDS: PHENERGAN WITH CODEINE SYRUP 5 ML PO (13:25)
--- NOTE | 2025-04-20 13:26 | W.DCSUMMARY ---
Discharge Summary
Discharge Data
Date of Admission: 04/15/25
Date of Discharge: 04/20/25
Total time spent discharging patient (in min): 51
-
Pending Results: No
Hospital Course
Ms. Mercado is a 80-year-old female with a medical history of COPD, descending thoracic aortic aneurysm, and hypertension who presented with fever, cough, and shortness of breath. She was found to have pneumonia secondary to influenza A with suspected
superimposed bacterial infection. She was hypoxic requiring supplemental oxygen. Her symptoms improved after being started on Tamiflu and antibiotics. Her supplemental oxygen was able to be titrated down but not discontinued. She was requiring
supplemental oxygen via low-flow nasal at the time of hospital discharge. She is being discharged on 1 more day of Tamiflu and antibiotics to complete a total 5-day course. She will need close follow-up with her imaging system administrator after hospital
discharge.
General: No Apparent Distress, Comfortable and Conversant
HEENT: NormoCephalic, Moist mucous membranes, Atraumatic
Respiratory: Minimal scattered rhonchi bilaterally, Non Labored Respirations
Cardiac: S1/S2 and Regular Rhythm; No Rub or Gallop
GI: Soft, Non Tender, Non Distended and Normal Bowel Sounds
Musculoskeletal: No Edema, no deformity
: NO Anderson
Neuro: Awake, Alert, Nonfocal/grossly intact
Psych: Calm and cooperative
Discharge Plan
-
Patient Disposition: Home with Home Care
Discharge Diagnosis/Procedures: Acute hypoxic respiratory failure
Pneumonia secondary to influenza A with superimposed bacterial pneumonia
Activity Restrictions/Additional Instructions:
You were admitted for treatment of shortness of breath due to pneumonia which was caused by influenza infection and superimposed bacterial pneumonia. You were started on treatment with Tamiflu for antiviral therapy and antibiotics for treatment of
your superimposed pneumonia. You were given supplemental oxygen via nasal cannula which was titrated as needed. You symptomatically improved with this treatment. You will be continued on 1 more day of Tamiflu and antibiotics. You will require
supplemental oxygen at the time of discharge which has been arranged for you. You will likely not need this supplemental oxygen long-term once your pneumonia resolves. You should follow-up closely with your imaging system administrator for further monitoring
after this hospitalization.
Referrals:
Blanka Perez MD [Active, Pulmonary Medicine]
Fani Monroe MD [Family Provider, Internal Medicine]
Prescriptions:
New
oseltamivir 30 mg Capsule
30 mg PO BID Qty: 3 0RF
cefdinir 300 mg capsule
300 mg PO BID Qty: 3 0RF
Rx Instructions:
Last dose evening of 04/21
benzonatate 100 mg Capsule
100 mg PO TIDPRN PRN (Reason: cough) Qty: 14 0RF
Continued
Breztri Aerosphere 160-9-4.8 mcg/actuation Hfa Aerosol Inhaler
2 inh INHALATION R BID
buspirone 5 mg Tablet
5 mg PO DAILY
sennosides [senna] 8.6 mg Tablet
8.6 mg PO DAILYPRN PRN (Reason: constipation)
acetaminophen [Tylenol] 325 mg Tablet
650 mg PO Q6HPRN PRN (Reason: mild pain)
therapeutic multivitamin Tablet
1 tab PO DAILY
amlodipine [Norvasc] 5 mg Tablet
5 mg PO DAILY
lansoprazole 15 mg Capsule,Delayed Release(Dr/Ec)
15 mg PO DAILY
albuterol sulfate 90 mcg/actuation Hfa Aerosol Inhaler
2 puff INHALATION R Q6HPRN PRN (Reason: sob)
losartan 100 mg Tablet
100 mg PO DAILY
simethicone 80 mg Tablet,Chewable
80 mg PO DAILYPRN PRN (Reason: gas pains)
cholecalciferol (vitamin D3) [Vitamin D3] 25 mcg (1,000 unit) Capsule
25 mcg PO DAILY
rosuvastatin [Crestor] 5 mg Tablet
5 mg PO MOWEFR
Align (B.longum) 10 million cell Capsule
1 cell PO DAILY
Discharge Orders:
Discharge Patient (As Directed); Ordered 04/20/25
Ordered By: River Blackburn
Discharge Date and Time
Print Language: SWEDISH
--- NOTE | 2025-04-20 13:40 | CM ---
Addendum entered by Sheron Hidalgo 04/20/25 15:33:
Spoke w/ daughter, answered all questions. 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
IMM verbally reviewed
Original Note:
Patient will d/c home today
[facility] following, will start services once patient is home
[facility] to deliver portable O2 to patient bedside today prior to d/c home
[facility]

Plan: Home w/ [facility] and continuous O2 through [facility]
--- NOTE | 2025-04-20 15:23 | PTCARENOTE ---
Pt expressing concerns about DC home today, resp and CM called to speak with pt and her daughter to provide additional information. o2 tank delivered to room for pt. Emotional support provided, made aware.
[2025-04-20 15:35] VITALS: BP 150/71
== END 2025-04-20 17:25 | disposition home health service (06) | DRG 193 ==
LOC: 2 NORTH 18:04
PROVIDERS: Emergency Medicine; Internal Medicine; ADMITTING PHYSICIAN Hospitalist; ATTENDING PHYSICIAN Internal Medicine; EMERGENCY PHYSICIAN Emergency Medicine; FAMILY PHYSICIAN Hospitalist
DX: J10.01 Influenza due to other identified influenza virus with the same other identified influenza virus pneumonia (principal); J96.01 Acute respiratory failure with hypoxia; J44.0 Chronic obstructive pulmonary disease with (acute) lower respiratory infection; J44.1 Chronic obstructive pulmonary disease with (acute) exacerbation; E87.1 Hypo-osmolality and hyponatremia; J15.9 Unspecified bacterial pneumonia; I10 Essential (primary) hypertension; M85.80 Other specified disorders of bone density and structure, unspecified site; E78.5 Hyperlipidemia, unspecified; Z87.442 Personal history of urinary calculi; F17.200 Nicotine dependence, unspecified, uncomplicated; Z88.8 Allergy status to other drugs, medicaments and biological substances; D72.819 Decreased white blood cell count, unspecified; R73.03 Prediabetes; F32.A Depression, unspecified; F41.9 Anxiety disorder, unspecified; K21.9 Gastro-esophageal reflux disease without esophagitis; Z79.899 Other long term (current) drug therapy; Z11.52 Encounter for screening for COVID-19
CPT/HCPCS: 71046; 80048; 80053; 83880; 84145; 84484; 85025; 87070; 87502; 87811; 93005; 94640; 94667; 94668; 96360; 97110; 97116; 97162; 99285

== ENCOUNTER → 2025-05-16 09:49 | Outpatient (REF) | payer OTHER, SELFPAY | LOC: PET 09:49 | PROVIDERS: ATTENDING PHYSICIAN Internal Medicine Critical Care Medicine | DX: R91.1 Solitary pulmonary nodule (principal) | CPT/HCPCS: 78815; A9552 ==